=== PATIENT | male | born 1940 | race Caucasian/White ===

== ENCOUNTER 2017-06-05 06:55 | Day surgery (SDC) | payer MEDICARE, OTHER ==
[~2017-06-05] VITALS: Ht 177.8 cm; Wt 81.7 kg
[~2017-06-05 06:55] MED LIST: OXYBUTYNIN CHLOR5 MG PO; TERAZOSIN HCL5 MG PO; ZESTRIL40 MG PO
[2017-06-05] MEDS ORDERED: ALEVE220 MG PO (07:11)
[2017-06-05] MEDS ORDERED: ADULT LOW DOSE81 MG PO (07:13)
--- NOTE | 2017-06-05 10:36 | NUR ---
06/05/17 Clair6 Mary Negrete 1025: PT ARRIVED TO PACU WITH ORAL AIRWAY IN PLACE EXCHANGING AIRWAY, O2 SAT 100%. ADB SOFT AND ROUND. 1030: ORAL AIRWAY REMOVED BY IMAGE PROCESSING ENGINEER, O2 SAT 100% AND PT MAINTAINING OWN AIRWAY. PT RESTING AND REACTIVE TO STIMULI. 1035: PT OPEN HIS EYE AND NODED WHEN TOLD SURGERY WAS OVER.
[2017-06-05] MEDS ORDERED: MAPAP325 MG PO (10:41)
[2017-06-05] MEDS ORDERED: HYDROCODON-ACE1 EA10 PO (10:41)
--- NOTE | 2017-06-05 11:08 | NUR ---
ICED WATER GIVEN. CALL LIGHT W/IN REACH. SPOUSE @ BS. HARD COPY RX GIVEN TO SPOUSE. PT DENIES ADD'L NEEDS @ THIS TIME.
--- NOTE | 2017-06-05 12:20 | NUR ---
PT REPORTS FEELING "DIZZY" AND STATES HE IS "A LITTLE" NAUSEATED. SPOUSE REMAINS @ BS. PT HAS TAKEN SMALL SIPS OF WATER ONLY.
--- NOTE | 2017-06-05 12:48 | NUR ---
PT SWINGS LEGS TO SIDE OF BED AND MANEUVERS WELL. PT REPORTS INCREASED DIZZINESS AND NAUSEA WITH MOVEMENT. PT VOIDS APPROX 50 ML CLEAR YELLOW URINE AND IS BACK IN BED. SCDS IN PLACE.
--- NOTE | 2017-06-05 13:43 | NUR ---
PT WAKES EASILY WHEN RN ENTERS ROOM. PT REPORS FEELING "A LITTLE BETTER". PT TAKES SIPS OF WATER AND TOLERATES THAT WELL. SPOUSE REMAINS @ BS.
--- NOTE | 2017-06-05 14:51 | NUR ---
PT STANDS AND AMBULATES AROUND THE ROOM WELL. PT AMBULATES TO BR AND VOIDS 400 ML CLEAR YELLOW URINE IN URINAL AND AMBULATES BACK TO ROOM. PT REQ DC HOME W/SPOUSE. VERBAL DC INSTRUCTIONS GIVEN AND BOTH VERBALIZE UNDERSTANDING. PT GETTING DRESSED W/SPOUSE IN THE ROOM.
--- NOTE | 2017-06-09 10:36 | OR ---
[facility] [address], [place] [address] Signed DATE OF PROCEDURE: 06/05/17 PREOPERATIVE DIAGNOSIS: Right inguinal hernia. POSTOPERATIVE DIAGNOSES: Right indirect and direct inguinal hernia. PROCEDURE Repair of right inguinal hernia with implantation of Prolene mesh including ligation and excision of indirect sac. SURGEON: Brigida Rey MD. ANESTHESIA General endotracheal (Ivanna Ara, LEGISLATIVE AIDE, and local 20 mL of 0.25% Marcaine with epinephrine). INDICATION This 77-year-old white man is patient Dr. Fermin Peterson and has had progressive pain from a right inguinal hernia. It appears that the hernia is reducible. He has no associated constipation or chronic co ugh. He does have some urinary outlet obstructive symptoms which he takes terazosin. He is admitted at this time to undergo repair of the right inguinal hernia. He understand the risks of bleeding, infection, recurrence, and other unforeseen complications. He understand that, he wished to proceed. FINDINGS A moderate-sized indirect sac was noted. There was no sign of incarcerated viscus or sliding component. Additionally, the floor was markedly attenuated. High ligation and excision of the sac was accomplished as well as implantation of Prolene mesh in the properitoneal space in an underlay technique. There were no other findings of concern. A large ilioinguinal nerve branch was identified and preserved. PROCEDURE The patient was brought to the operating room, given a general endotracheal anesthetic. He received preoperative antibiotic Ancef. Sequential compression device stockings were used and heparin subcutaneously administered. The abdomen was clipped and prepared with Chlorhexidine solution and draped sterilely. A small incision was made cephalad to the pubic tubercle along the line of skin tension. Dissection was carried through the subcutaneous tissue with electrocautery. The external oblique was incised along its fibers revealing the underlying cord. The cord was dissected free and an ilioinguinal nerve branch identified and freed from the cremasteric muscle fibers of the cord and reflected around the external oblique and got out of harms way. Using blunt dissection, the cord was mobilized from the floor. It was encircled with a [place] drain. The floor Electronically Signed By: BRIGIDA REY MD 06/09/17 1036 PATIENT NAME: EDILSON LOPEZ OPERATIVE REPORT DATE OF : 36 PHYSICIAN: BRIGIDA REY MD REPORT #: [id number] REPORT IS CONFIDENTIAL AND NOT TO BE RELEASED WITHOUT AUTHORIZATION [facility] [address], [place] [address] Signed was markedly attenuated as well. An indirect hernia sac was dissected free from the spermatic cord. It was isolated completely from it, opened and found to have no sign of incarcerated viscus with sliding component. Using a 2-0 silk suture, the neck of the hernia sac was secured and this suture was applied doubly. The redundant hernia sac was amputated and passed for pathology. An Allis clamp was applied to the tendon of the transversus abdominis and using blunt dissection and electrocautery, the floor of the inguinal canal was divided, bluntly the properitoneal fat. A segment of Prolene mesh was cut to an elliptical configuration and secured in an underlay technique with interrupted 2-0 Prolene sutures. A defect was cut in the graft to accommodate the cord and the tails of the graft were secured laterally without encumbrance of the ilioinguinal nerve. The cord was replaced into the canal and hemostasis assured with electrocautery. A 20 mL of 0. 25% Marcaine with epinephrine was injected locally. The cord was placed into the canal with the ilioinguinal nerve, and the external oblique reapproximated with running 2-0 Vicryl suture. Maty's layer was reapproximated with interrupted 2-0 Vicryl, and the skin closed with running subcuticular 3-0 Vicryl. Steri-Strips were applied as well as Mepilex silver sponge dressing and an OpSite. The patient was ultimately extubated and transferred to the recovery room in good condition having suffered no complications. Sponge, needle, and instrument counts were reported as correct x3. MD TAMMIE Nicholas/Modl /[id number] cc: Reid Peterson MD Electronically Signed By: BRIGIDA REY MD 06/09/17 1036 PATIENT NAME: EDILSON LOPEZ OPERATIVE REPORT DATE OF : 36 PHYSICIAN: BRIGIDA REY MD REPORT #: [id number] REPORT IS CONFIDENTIAL AND NOT TO BE RELEASED WITHOUT AUTHORIZATION
== END 2017-06-05 15:10 | disposition home or self-care (01) ==
LOC: DS 06:55
PROVIDERS: Surgery
PROC: 0YU50JZ Supplement Right Inguinal Region with Synthetic Substitute, Open Approach (ICD-10-PCS; principal; 2017-06-05 08:15)
DX: K40.90 Unilateral inguinal hernia, without obstruction or gangrene, not specified as recurrent (principal); D17.6 Benign lipomatous neoplasm of spermatic cord; I10 Essential (primary) hypertension; K21.9 Gastro-esophageal reflux disease without esophagitis; Z86.73 Personal history of transient ischemic attack (TIA), and cerebral infarction without residual deficits; Z95.0 Presence of cardiac pacemaker; Z98.49 Cataract extraction status, unspecified eye; Z98.890 Other specified postprocedural states
CPT/HCPCS: 00830; 88300; C1781; J0330; J0690; J1100; J1644; J1885; J2405; J2550; J2704; J7120

== ENCOUNTER 2017-07-07 05:38 | Emergency (ER) | payer MEDICARE, OTHER ==
[~2017-07-07] VITALS: Ht 177.8 cm; Wt 81.7 kg
--- NOTE | ~2017-07-07 | EKG ---
[facility] [address] [facility] [place], [place] [address] Draft EKG completed, results pending confirmation PATIENT NAME: EDILSON LOPEZ NEGRITO Electrocardiogram DATE OF : 36 PHYSICIAN: PRELIMINARY REPORT #: [id number] REPORT IS CONFIDENTIAL AND NOT TO BE RELEASED WITHOUT AUTHORIZATION
[~2017-07-07 05:38] MED LIST changes: +ADULT LOW DOSE81 MG PO; +ALEVE220 MG PO; +HYDROCODON-ACE1 EA10 PO; +MAPAP325 MG PO
[2017-07-07] MEDS ORDERED: TRAMADOL HCL50 MG PO (06:55)
--- NOTE | 2017-07-07 14:25 | EKG ---
[facility] [address] [facility] [place] [address] Signed Atrial-paced rhythm with prolonged AV conduction Abnormal ECG When compared with ECG of 07-JUL-2017 06:25, (Unconfirmed) No significant change was found Confirmed by ALEXANDRE JUAREZ MD ([id number]) on 07/07/2017 2:25:17 PM Electronically Signed By: ALEXANDRE JUAREZ MD 07/07/17 1425 PATIENT NAME: EDILSON LOPEZ Electrocardiogram DATE OF : 36 PHYSICIAN: ALEXANDRE JUAREZ MD REPORT #: [id number] REPORT IS CONFIDENTIAL AND NOT TO BE RELEASED WITHOUT AUTHORIZATION
== END 2017-07-07 07:06 | disposition home or self-care (01) ==
LOC: ED 05:38
DX: M25.512 Pain in left shoulder (principal); I10 Essential (primary) hypertension; Z87.891 Personal history of nicotine dependence; Z79.82 Long term (current) use of aspirin; Z79.899 Other long term (current) drug therapy
CPT/HCPCS: 71020; 84484; 93005; 93010; 99283

== ENCOUNTER 2018-10-17 11:32 | Emergency (ER) | payer MEDICARE, OTHER ==
[~2018-10-17] VITALS: Ht 177.8 cm; Wt 81.7 kg
[~2018-10-17 11:32] MED LIST changes: +OXYCODON-ACETA1 EAC2 PO; +TRAMADOL HCL50 MG PO
--- NOTE | 2018-10-18 11:29 | EKG ---
[facility] [address] [facility] [place] [address] Signed Atrial-paced rhythm Abnormal ECG When compared with ECG of 19-AUG-2018 11:08, T wave inversion no longer evident in Lateral leads Confirmed by ABDON REYES DO ([id number]) on 10/18/2018 11:29:35 AM Electronically Signed By: ABDON REYES DO 10/18/18 1129 PATIENT NAME: EDILSON LOPEZ NEGRITO Electrocardiogram DATE OF : 36 PHYSICIAN: ABDON REEYS DO REPORT #: [id number] REPORT IS CONFIDENTIAL AND NOT TO BE RELEASED WITHOUT AUTHORIZATION
== END 2018-10-17 14:37 | disposition home or self-care (01) ==
LOC: ED 11:32
DX: R55 Syncope and collapse (principal); R53.1 Weakness; I10 Essential (primary) hypertension; Z79.899 Other long term (current) drug therapy; Z79.82 Long term (current) use of aspirin
CPT/HCPCS: 71045; 80053; 81001; 84484; 85025; 93005; 93010; 96360; 99285-25; J7040

== ENCOUNTER 2021-07-13 11:48 | Inpatient (IN) | payer MEDICARE, OTHER ==
[~2021-07-13] VITALS: Ht 177.8 cm; Wt 79.8 kg
--- NOTE | 2021-07-13 19:45 | NUR ---
pt ARRIVES TO FLOOR VIA STRETCHER. VOMITTING, PAINFUL WITH SITTING HOB UP FOR ASPIRATION PRECAUTION. PHONE CALL TO MD. ROSA TO PLACE ORDER.
--- NOTE | 2021-07-13 20:18 | NUR ---
ASSESSMENT COMPLETE. pt RATES PAIN 5/10 IN LOWER BACK, NO REDNESS NOTED. LIDOCAINE PATCH APPLIED ORDERED. PRN PAIN MEDICATION ADMINISTERED AFTER PRN NAUSEA MEDICATION. pt ABLE TO SWALLOW WITH JELLO. DENIES NAUSEA AFTER PRN PHENERGAN ADMINISTRATION. SON IN ROOM. ABD SOFT, NON-TENDER WITH PALPATION, BOWEL TONES ACTIVE. pt STATES HE HAS NOT HAD BM SINCE LAST WEEK, NORMAL FOR HIM, STOOLS WNL. ORIENTATION TO ROOM PROVIDED. CALL LIGHT WITHIN REACH.
--- NOTE | 2021-07-13 21:55 | NUR ---
AFTER SCHEDULED MEDICATION GIVEN IV, PT STARTED TO GET OUT OF BED. WANTED A DRINK OF WATER. GIVEN, BUT THEN HE CONTINUED TO WANT TO GET UP. NO COMPLAINT, OR SIGN OF PAIN. ASSISTED PT TO STAND, WAS ABLE TO STEP TO HEAD OF BED, SAT BACK DOWN, THEN WANTED UP AGAIN. THIS TIME HE WANTED TO PEE, STOOD AT BEDSIDE TO USE URINAL, AGAIN, NO COMPLAINTS OR SIGN OF PAIN. ABLE TO GET HIS LEGS BACK INTO BED WITHOUT ASSISTANCE. ASKED PT ABOUT HIS PAIN HE SAID IT WASN'T TOO BAD, SELF REPOSITIONED, WITHOUT COMPLAINTS OF PAIN. BED ALARM PLACED, EDUCATED PT TO CALL LIGHT AGAIN.
--- NOTE | 2021-07-13 22:49 | NUR ---
pt RESTING IN BED WITH EYES CLOSED, BREATHING EQUAL AND UNLABORED, RR 16. LIGHTS OFF IN ROOM. BED ALARM ON.
--- NOTE | 2021-07-14 01:00 | NUR ---
CHECKED ON Pt. RESTING IN BED WITH EYES CLOSED. BREATHING EQUAL AND UNLABORED. LIGHTS OFF IN ROOM. BED ALARM ON.
--- NOTE | 2021-07-14 02:05 | NUR ---
pt RESTING ON RIGHT SIDE. VSS. pt CONFUSED, STATES "I'M AT A CARE FACILITY". REORIENTATION TO LOCATION, DATE, EVENT PROVIDED. pt REORIENTS EASILY. DENIES TOILETING NEEDS. PROVIDED WITH JELLO. DENIES NAUSEA. ASSESSMENT COMPLETE. pt RATES PAIN 4/10 IN LOWER BACK "IT'S NOT BAD". DENIES NEED FOR PRN MEDICATION. CALL LIGHT IN REACH. BED ALARM ON.
--- NOTE | 2021-07-14 04:25 | NUR ---
pt RESTING IN BED. EYES CLOSED, BREATHING UNLABORED. LYING ON RIGHT SIDE. LIGHTS OFF IN ROOM. BED ALARM ON.
--- NOTE | 2021-07-14 06:49 | NUR ---
pt AWAKENS TO VOICE, RATES PAIN 6/10 IN LOWER BACK. PRN MUSCLE RELAXER AND PAIN MEDICATION ADMINISTERED. pt SITTING UP IN BED EATING PUDDING, DRINKING WATER. DENIES NAUSEA. VSS. URINAL EMPTIED. ASSISTED TO USE PHONE TO CALL TO BRING GLASSES IN. pt ASSISTED TO ORDER BREAKFAST. CALL LIGHT IN REACH, pt FORGETFUL WITH HOW TO USE CALL LIGHT REORIENATION PROVIDED. BED ALARM ON.
[2021-07-14] MEDS ORDERED: TRAMADOL HCL50 MG PO (07:27)
--- NOTE | 2021-07-14 07:49 | NUR ---
report recieved from night order selector RN, patient in bed resting reports pain is much better this morning, denies any needs. call [facility] within reach.
--- NOTE | 2021-07-14 10:40 | NUR ---
PRN MEDICATIONS GIVEN FOR BACK PAIN, AND SON IN ROOM, PATIENT DENIES ANY OTHER NEEDS AT THE MOMENT, CALL LIGHTWITHIN REACH AND BEDALARM ON.
--- NOTE | 2021-07-14 10:45 | NUR ---
Spoke with pt and his . They live in a 2 story home with a ramp. Pt uses a cane and sometimes a walker. Has a history of back pain, but never this bad in the past. Has seen Dr. Hester in [place] for injections to his back. They are aware of [employer] and never use the food bank. State they are financially ok. Son is in the room. All deny awaiting to hear test results. Plan is to go home with .
--- NOTE | 2021-07-14 11:39 | NUR ---
MED REC COMPLETE
--- NOTE | 2021-07-14 14:21 | NUR ---
PT ALERT, OREINTED AND SITTING IN BED WATCHING TV. PT HAS CHRONIC SEVERE BACK PAIN AND IS WAITING FOR TEST RESULTS. PLANS TO GO TO [facility] FOR BACK SURGERY PENDING THE TEST RESULTS. PT REQUESTED PRAYER, WILL FOLLOW
--- NOTE | 2021-07-14 14:40 | NUR ---
PRN MEDICATIONS GIVEN FOR BACK PAIN, DENIES ANY OTHER NEEDS. BEDALARM PHYSICIAN LIGHT WITHIN REACH,
--- NOTE | 2021-07-14 18:35 | NUR ---
PATIENT RESTING IN ROOM UOP BETTER THIS AFTERNOON AFTER 1000ML BOLUS OF LR, PRN MEDICATIONS GIVEN PER ORDERS, CONTINUE WITH PAIN MANAGEMENT, PATIENT WORKED WITH PT, REPORTS NO BOWEL MOVEMENTS IN A COUPLE DAYS ORDERS IN.
--- NOTE | 2021-07-14 19:20 | NUR ---
SHIFT REPORT RECEIVED FROM ALEXANDRIA WOOD. PT PLACED ON BED MOSELEY PER REQUEST AND CALL LIGHT PROVIDED.
--- NOTE | 2021-07-14 21:30 | NUR ---
IN TO GET VITALS, URINAL EMPTIED, PT DENIES NEED FOR WATER REFRESHED, NO FURTHER NEEDS
--- NOTE | 2021-07-14 22:00 | NUR ---
ASSESSMENT COMPLETED. PT BACK PAIN 04/26. PRN PAIN MED PROVIDED. SCHEDULED MEDS PROVIDED. GCS 15, A&O X4. LUNGS CLEAR, HEART TONES REGULAR. CMS INTACT. ABD SOFT, NONTENDER, BOWEL TONES ACTIVE. IV WNL, CDI, FLUSHED WELL. ICE WATER PROVIDED. NO OTHER NEEDS AT THIS TIME. CALL LIGHT IN REACH.
--- NOTE | 2021-07-15 | NUR ---
PT RESTING IN BED, RR EVEN, UNLABORED. CALL LIGHT IN REACH.
--- NOTE | 2021-07-15 02:10 | NUR ---
IN TO EMPTY URINAL FOR PT, NO FURTHER NEEDS AT THIS TIME
--- NOTE | 2021-07-15 04:56 | NUR ---
PT REPORTS 9/10 BACK PAIN. PRN MED PROVIDED. ASSESSMENT, VS AND I&O COMPLETED. IV WNL. NO OTHER NEEDS AT THIS TIME. CALL LIGHT IN REACH.
--- NOTE | 2021-07-15 07:35 | NUR ---
REPORT RECIEVED FROM MICA SPREADER RN, IN BED RESTING, CALL LIGHT WITHIN REACH DENIES ANY OTHER NEEDS AT THE MOMENT
--- NOTE | 2021-07-15 11:30 | NUR ---
Spoke with pt and . Pt is uncomfortable and is crying. States its so hard to watch him in pain. Rn is getting pain med for pt.
--- NOTE | 2021-07-15 11:38 | NUR ---
PT LAYING IN BED, AT BS. PT IS IN GREAT PAIN TODAY, WAITING FOR POSSIBLE X-RAY TO [place]OVE MORE INFO FOR BACK DR IN [place]. PT TO REMAIN QUIET TODAY-NO ACTIVITY TODAY. HAD PRAYER WITH BOTH, GAVE PT BRUNA AND VIJI. WILL FOLLOW
--- NOTE | 2021-07-15 11:42 | NUR ---
BED BATH DONE WELL COMPLETE BED CHANGE, PATIENT WITH SEVERE PAIN, PRN DILAUDID GIVEN FOR PAIN POST BATH, RESTING COMFORTABLE, AT BEDSIDE NO OTHER NEEDS AT THE MOMENT.
--- NOTE | 2021-07-15 17:34 | NUR ---
prn pain meds and muscle relaxer given to patient .
--- NOTE | 2021-07-15 18:50 | NUR ---
PATIENT RESTING IN BED, NO NEEDS AT THE MOMENT.
--- NOTE | 2021-07-15 19:29 | NUR ---
SHIFT REPORT RECEIVED FROM NINA IBRAHIM. PATIENT RESTING QUIETLY IN LOW FOWLERS POSITION, RESPIRATIONS ARE REGULAR AND EVEN, EYES CLOSED, CALL LIGHT IS IN REACH.
--- NOTE | 2021-07-15 21:30 | NUR ---
PATIENT STILL RESTING QUIETLY IN LOW FOWLERS POSITION. EYES ARE CLOSED AND RESPIRATIONS ARE REGULAR AND EVEN. CALL LIGHT IS IN REACH.
--- NOTE | 2021-07-15 22:02 | NUR ---
IN TO GET VITALS, EMPTIED URINAL, NO FURTHER NEEDS AT THIS TIME, PT DENIES NEED FOR WATER REFILLED AT THIS TIME
--- NOTE | 2021-07-15 22:21 | NUR ---
PATIENT HAVING 8/10 LOW BACK PAIN AND OXYCODONE AND TYLENOL GIVEN, BUT PATIENT IS HURTING A LOT AND 0.5MG IV DILAUDID ALSO GIVEN. PATIENT TOOK ALL OTHER EVENING MEDS WITHOUT DIFFICULTY. PATIENT HAS BEEN VOIDING PER URINAL. HELPED PATIENT REPOSITON WITH PILLOWS TO HIS LEFT SIDE. PATIENT HAS NO OTHER CARE NEEDS AT THIS ITME. CALL LIGHT IS IN REACH.
--- NOTE | 2021-07-15 23:22 | NUR ---
PATIENT RESTING QUIETLY WHEN I WENT IN TO EMPTY URINAL AND WOKE UP AND SAID HIS PAIN IS DOWN TO A 4/10. PATIENT HAD NO OTHER CARE NEEDS AT THIS TIME. CALL LIGHT IS IN REACH.
--- NOTE | 2021-07-16 02:24 | NUR ---
CHECKING IN ON PATIENT AND HE HAS BEEN ABLE TO GET A LITTLE SLEEP. PATIENT'S BACK PAIN IS CURRENTLY 5/10 AND OXYCODONE AND A MUSCLE RELAXANT GIVEN FOR PAIN. PATIENT'S URINAL EMPTIED AND PATIENT DENIED ANY OTHER NEEDS. LIGHTS TURNED DOWN AND CALL LIGHT IS IN REACH.
--- NOTE | 2021-07-16 04:26 | NUR ---
PATIENT RESTING QUIETLY ON HIS LEFT SIDE, RESPIRATIONS ARE REGULAR AND EVEN, EYES ARE CLOSED, CALL LIGHT IN REACH, PATIENT HAS NO CARE NEEDS AT THIS TIME.
--- NOTE | 2021-07-16 06:31 | NUR ---
AT 0548 PATIENT HAD C/O 7/10 LOW BACK PAIN AND WANTED PAIN MEDICATION WHICH WAS GIVEN. 0.5MG IV DILAUDID FOR QUICK RELIEF AND 10MG PO OXYCODONE FOR LONGER PAIN CONTROL. PATIENT APPEARED TO HAVE GOTTEN DOWN BOTH TABLETS, BUT AFTER DOING VS THIS RN FOUND A WET TABLET OF ABOUT THE SAME SIZE ON THE FLOOR WHICH WAS THROWN AWAY. PATIENT REPOSITOINED IN BED AND PULLED UP AND NEW ATTENDS IN PLACE. PATIENT HAD A LITTLE DRIBBLING INCONTINENCE ON THE PREVIOUS ATTENDS AND THERE WAS A SMALL AMOUNT OF BLOOD ON THE ATTENDS AND ON THE TIP OF THE PENIS AT THE URETHRA. PATIENT IS UNSURE IF HE HURT HIMSELF USING THE URINAL OR NOT. THIS WAS WASHED UP WITH A CLEAN WASHCLOTH. PATIENT'S B/P IS A LITTLE SOFT AND URINE OUTPUT HAS NO BEEN GREAT. WILL BE CALLING .
--- NOTE | 2021-07-16 06:41 | NUR ---
CALLED ABOUT PATGIENT'S LOW BLOOD PRESSURE AND NEW ORDER GIVEN FOR LR AT 75ML/HR. ALSO INFORMED MD OF LOWER URINE OUTPUT AND VERBALIZED UNDERSTANDING. ORDER PUT IN AND LR STARTED. PATIENT'S CALL LIGHT IS IN REACH.
--- NOTE | 2021-07-16 07:10 | NUR ---
Bedside report recieved from access tech RN, patient currently sleeping, call light within reach no needs at the time.
--- NOTE | 2021-07-16 07:21 | NUR ---
HERE ON THE UNIT. DISCUSSED PATIENT HAVING SCD'S SINCE PATIENT IS NOT MOVING MUCH. SCD ORDER GIVEN. NINA IBRAHIM INFORMED.
--- NOTE | 2021-07-16 07:30 | NUR ---
PT AWAKE IN BED. PT REFUSED TO SIT UP IN BED FOR BREAKFAST, BUT WAS NOT READY TO EAT YET. GAVE PT WARM CLOTH FOR FACE AND WHITE BOARD UPDATED. CALL LIGHT WITHIN REACH. WINDOW BLINDS OPENED. NO FURTHER NEEDS AT THIS TIME.
--- NOTE | 2021-07-16 08:45 | NUR ---
RN IN ROOM TO ASSSES PATIENT, PATIENT HAS BEEN HAVING SOFT BP OVER NIGHT CURRENTLY 100/49 MAP 60 HR 60, HOLDING LISINOPRIL AND HYTRIN , PATIENT STILL COMPLAINING OF 8/10 BACK PAIN, UNABLE TO TOLERATE MUCH MOVEMENT. DR MANN NOTIFIED CONTINUE TO MONITOR. SCHEDULED TYLENOL GIVEN FOR PAIN.
--- NOTE | 2021-07-16 09:35 | NUR ---
PT AWAKE IN BED WITH FAMILY IN THE ROOM. CALL LIGHT WITHIN REACH. PT'S FAMILY CONCERNED BY LACK OF BM BY THE PT. RN ALEXANDRIA NOTIFIED. FRESH ICE WATER GIVEN. NO FURTHER NEEDS AT THIS TIME.
--- NOTE | 2021-07-16 10:24 | NUR ---
RN TO CHECK ON PATIENT BP 88/45 DR FLORES NOTIFIED, WILL ASSESS PATIENT.
--- NOTE | 2021-07-16 10:30 | NUR ---
MD AWARE OF PATIENT STATUS.
--- NOTE | 2021-07-16 11:08 | NUR ---
In room to round on patient currently resting bp better, patient more awake, at bedside, Dr Claros placed orders for CT scans.
--- NOTE | 2021-07-16 12:47 | NUR ---
patient went down to CT with RN and CABLE SYSTEMS INSTALLER, able to tolerate transfers, back in room with at bedside denies any other needs at the time.
--- NOTE | 2021-07-16 15:15 | NUR ---
RN in to round on patient, patient resting in bed, at bedside, no needs at this time
--- NOTE | 2021-07-16 15:34 | NUR ---
BED BATH COMPLETED ON PT WITH HELP OF NINA IBRAHIM. FRESH LINENS, GOWN, WARM BLANKETS, FRESH BRIEF GIVEN. PT TURNED ONTO LEFT SIDE AND SUPPORTED BY A PILLOW. CALL LIGHT WITHIN REACH. NO FURTHER NEEDS AT THIS TIME.
--- NOTE | 2021-07-16 18:00 | NUR ---
RN IN ROOM TO ROUND DENIES ANY NEEDS AT THE MOMENT.
--- NOTE | 2021-07-16 19:30 | NUR ---
SHIFT REPORT RECIEVED FROM NINA IBRAHIM. PATIENT RESTING QUIETLY IN BED AT THIS TIME WITH LIGHTS DOWN LOW, EYES ARE CLOSED, RESPIRATIONS ARE REGULAR AND EVEN, AND CALL LIGHT IS IN REACH. NO CURRENT CARE NEEDS NOTED AT THIS TIME.
--- NOTE | 2021-07-16 21:17 | NUR ---
PATIENT IS ABLE TO PULL HIMSELF UP IN BED TONIGHT WHICH IS A BIG IMPROVEMENT SINCE LAST NIGHT. PATIENT HAVING 6/10 LOW BACK PAIN. TYLENOL, A MUSCLE RELAXANT, AND LIDOCAINE PATCH ALL GIVEN AND OR APPLIED FOR THIS PAIN. PATIENT'S ICE WATER IS REFILLED, PM ASSESSMENT COMPLETE, VS STABLE, AND I+O ENTERED BY THIS RN. PATIENT HAS NO OTHER CARE NEEDS AT THIS TIME AND CALL LIGHT IS IN REACH.
--- NOTE | 2021-07-16 23:00 | NUR ---
ASSISTED PT ON TO THE BEDPAN, PT TRYING FOR A BM, UNABLE AT THIS TIME, CHANGED PT DUE TO UNINE SPILL, NEW CHUX, ATTENDS IN PLACE, NO FURTHER NEEDS AT THIS TIME
--- NOTE | 2021-07-17 01:10 | NUR ---
PATIENT'S URINAL EMPTIED, PATIENT RESTING QUIETLY, EYES CLOSED, RESPIRATIONS REGULAR AND EVEN, IN LOW FOWLERS POSITION, CALL LIGHT IN REACH, NO OTHER CARE NEEDS NOTED AT THIS TIME.
--- NOTE | 2021-07-17 02:00 | NUR ---
IN TO ASSIST RN WITH CLEANED UP PT, FLOOR, AND BED RAILS, LINENS CHANGED, PRIMARY RN NOTIFIED AND IN TO START NEW IV, NO FURTHER NEEDS AT THIS TIME
--- NOTE | 2021-07-17 02:12 | NUR ---
PT'S IV WAS BEEPING, ENTERED ROOM TO FIND PT SITTING AT EDGE OF BED. HE HAD SOME HOW PULLED HIS IV OUT AND WHEN HE REALIZED HE STOPPED WITH BLEEDING WITH TISSUES. BLOOD DRIPPED ON FLOOR AND WAS ON PT'S GOWN AND BEDDING. CLEANED PT UP AND CHANGED BEDDING WITH HELP FROM SAMI MERAZ. ATTEMPTED TO HAVE PT STAND FIRST BUT HE WAS TOO PAINFUL SO WE CHANGED HIS BEDDING WITH HIM ROLLING SIDE TO SIDE. TONY WOOD IS NOW IN THE ROOM TO START A NEW IV. CALL LIGHT IS CLOSE.
--- NOTE | 2021-07-17 02:36 | NUR ---
PATIENT HAD ACCIDENTALLY PULLED OUT HI IV WHEN SITTING UP ON THE SIDE OF THE BED. NINA SINGER AND SAMI MERAZ GOT PATIENT CLEANED UP AND CHANGED. OLD IV CATHETER WAS INTACT. THIS RN STARTED A NEW 20G/IV IN PATIENT'S LEFT HAND PATIENT REQUESTED. GREAT BLOOD RETURN AND FLUSHES WELL. CONTINUOUS FLUIDS RUNNING AGAIN. PATIENT GIVEN 5MG PO OXYCODONE FOR 6/10 LOW BACK PAIN. LIGHTS TURNED DOWN AT PATIENT'S REQUEST. CALL LIGHT IS IN REACH. PATIENT HAS NO OTHER CARE NEEDS AT THIS TIME.
--- NOTE | 2021-07-17 05:05 | NUR ---
PATIENT SAYS HE HAS SLEPT WELL MOST OF THE NIGHT. PATIENT VOIDING QS URINE PER URINAL AT BEDSIDE. PATIENT HAS ONLY HAD 5MG OF OXYCODONE X1 TONIGHT FOR PAIN PATIENT FEELS HIS PAIN HAS BEEN MUCH MORE CONTROLLED TONIGHT. PATIENT HAS SET ON THE EDGE OF THE BED A COUPLE TIMES TONIGHT BY HIMSELF. PATIENT STILL CAN NOT STAND DUE TO INCREASED PAIN, BUT PATIENT ABLE TO SCOOT HIMSELF UP IN BED. PATIENT HAS REQUESTED TO HAVE HIS SCD'S OFF MOST OF THE NIGHT HE SAYS THEY MAKE HIM TO HOT AND HE IS NOT ABLE TO SLEEP WITH THEM ON. PATIENT STILL HAS NOT HAD A BM SINCE THE EVEN WITH ALL THE BOWEL MEDS HE HAS BEEN GIVEN. PATIENT MAY NEED TO HAVE AN ENEMA. WILL REPORT THIS TO AM SHIFT. BLOOD PRESSURE IS A LITTLE HIGH THIS MORNING OPPOSED TO THE LOW BLOO PRESSURE HE HAD YESTERDAY MORNING. B/P WAS WITHIN PARAMETERS AND PATIENT WAS STARTELED WHEN AWAKENED FOR VS. CALL LIGHT IS IN REACH AND PATIENT HAS NO CURENT CARE NEEDS.
--- NOTE | 2021-07-17 08:45 | NUR ---
THIS RN IN PTS ROOM TO GIVE PT MORNING MEDS. PT STATES THAT HIS PAIN IS OKAY WHEN HE DOESN'T MOVE. PT EATING BREAKFAST AND APPEARS TO BE FRUSTRATED WITH HIS BREAKFAST ORDER GETTING MESSED UP. PT TO WORK WITH PHYSICAL THERAPY
--- NOTE | 2021-07-17 10:30 | NUR ---
THIS RN IN PTS ROOM DUE TO PTS REQUEST. PT REPORTS PAIN. THIS RN IN TO GIVE PT 10MG OF OXY AND FLEXERIL. THIS RN HAD ASSISTANCE FROM ELSY GALLARDO TO GET PT BACK TO BED. IT TOOK 3 TRIES TO GET PT TO STAND UP FROM CHAIR DUE TO BACK SPASM PER PT "FROM PINCHED NERVE"
--- NOTE | 2021-07-17 15:30 | NUR ---
PT CALLING TO BE PUT ON BED MOSE[place]. THIS RN ASSISTED PT TO BEDPAN.
--- NOTE | 2021-07-17 16:00 | NUR ---
THIS RN IN PTS ROOM TO CHECK ON PT. PT REPORTS THAT HE WAS ABLE TO PASS SOME GAS. PT DID HAVE AN INCONTINCE URINE WHILE USING BEDPAN DUE TO PRESSURE OF PUSHING. ELSY GALLARDO ABLE TO ASSIST THIS RN TO REPOSITION PT
--- NOTE | 2021-07-17 19:41 | NUR ---
SHIFT REPORT RECEIVED FROM NINA HARDY. PATIENT RESTING QUIETLY IN BED AND HAS NO CURRENT CARE NEEDS. RESPIRATIONS ARE REGULAR AND EVEN AND PATIENT IN NO DISTRESS. CALL LIGHT IS IN REACH AND URINAL HAS BEEN EMPTIED.
--- NOTE | 2021-07-17 20:18 | NUR ---
CALL LIGHT ANSWERED. pt ASSISTED TO BED MOSELEY 1PA. PASSING GAS. CALL LIGHT WITHIN REACH. VERBALIZES UNDERSTANDING TO USE CALL LIGHT WHEN FINISHED.
--- NOTE | 2021-07-17 21:10 | NUR ---
KARON, RN ASSISTED THIS RN IN BED CHANGE AFTER PATIENT'S BOWELS FINALLY MOVED AFTER NO BM SINCE 07/08/21. XXLARGE BROWN/PASTY BM THAT OVERFLOWED PEDPAN WAS CLEANED UP. PATIENT IN NEW ATTENDS AND FRESS LINEN. PATIENT SAYS HE FEELS MUCH BETTER. BACK PAIN NOW 12/25 NOW, NEW LIDOCAINE PATCH IN PLACE, TYLENOL GIVEN, WELL MELATONIN FOR SLEEP. CALL LIGHT AND URINAL IN REACH. PATIENT HAS NO OTHER NEEDS AT THIS TIME.
--- NOTE | 2021-07-17 23:40 | NUR ---
PATIENT CALLED AND NEEDS CHUX AND AND ATTENDS CHANGED. THIS RN AND SAMI GIVENS CHANGED AND CLEANED UP PATIENT FROM ANOTHER XLARGE SOFT/SEMILIQUID BM. PATIENT HAD NO OTHER NEEDS AFTER THIS AND HIS CALL LIGHT IS IN REACH. PATIENT DID EAT TO SMALL JELLOS.
--- NOTE | 2021-07-18 00:54 | NUR ---
PATIENT'S LOW BACK PAIN HAS IMPROVED TO HER NORMAL TOLERANCE LEVEL AND DOES NOT WANT ANY MORE PAIN MEDS AT THIS TIEM. LR BOLUS COMPLETE AND LR AT 85MLS/HR RUNNING. PATIENT DENIES ANY NEEDS A THIS TIME AND IS NPO. CALL LIGHT IN REACH AND TOILET HAT EMPTIED.
--- NOTE | 2021-07-18 01:45 | NUR ---
PATIENT RESTING QUIETLY IN LOW FOWLERS POSITION, RESPIRATIONS REGULAR AND EVEN, EYES CLOSED, AND CALL LIGHT IS IN REACH. PATIENT HAS NO NOTED PATIENT CARE NEEDS AT THIS TIME.
--- NOTE | 2021-07-18 03:05 | NUR ---
PATIENT CALLED AND TO INFORM STAFF HE HAD ANOTHER BM. PATIENT ONLY HAD A SMEAR OF PASTY BROWN STOOL THIS TIME AND ATTENDS WAS CHANGED, BARRIER CREAM APPLIED, AND CALL LIGHT IS IN REACH. PATIENT HAD NO OTHER CARE NEEDS AT THIS TIME.
--- NOTE | 2021-07-18 05:25 | NUR ---
PATIENT'S ATTENDS REMAIN DRY, NO MORE STOOL AT THIS TIME. URINAL EMPTIED. MUSCLE RELAXANT GIVEN FOR 5/10 LOW BACK PAIN. PATIENT HAS NO THER CARE NEEDS AT THIS TIME. CALL LIGHT IS IN REACH.
--- NOTE | 2021-07-18 07:26 | NUR ---
PT AWAKE AT SHIFT EXCHANGE. C/O BACK PAIN RETURNING MEDICATED WITH OXY 5MG. FRESH GOWN AND WARM BLANKET PROVIDED PER REQUEST. CALL LIGHT IN REACH, PT DENIES OTHER NEEDS OF.
--- NOTE | 2021-07-18 08:13 | NUR ---
PT LAYING IN BED EATING BREAKFAST. PT ON THEIR BACK AND REFUSES TO GET UP TO CHAIR OR RAISE HEAD OF BED. NINA COHEN NOTIFIED. CALL LIGHT WITHIN REACH. WHITE BOARD UPDATED. THIS SEROLOGIST WILL CHECK ON PT PERIODICALLY WHILE EATING BREAKFAST. NO FURTHER NEEDS AT THIS TIME.
--- NOTE | 2021-07-18 09:15 | NUR ---
PT RESTING IN BED STATES HIS BACK HURTS BAD IT EVER HAS. TYLENOL AND DEXAMETHASONE ADMINISTERED, OXY EARLIER. PAIN REGIMEN DISCUSSED AT LENTH EACH MED AND ITS EFFECT, PT VERBALIZES UNDERSTANDING. TIME OF NEXT PRN RECORDED ON BOARD FOR PT VISUAL. PT NOTIFIED OF NOON TIME BONE SCAN, MEDS TO BE GIVEN AT 1130. BREAKFAST WELL TOLERATED, PT DENIES NEED OF OTHER ITEMS. CALL LIGHT AND FRESH H20 IN REACH
--- NOTE | 2021-07-18 09:50 | NUR ---
I was able to visit briefly with Paul this morning while doing my patient rounding. Paul states that he does not feel well today, he does feel that the nurses are taking good care of him, but he does not feel well, and would rather not visit extensively at this time. I wished him well, offered comfort measures which were denied, as he stated that he "just wanted to rest." Before leaving the room I did verify that he knew how to use his call light, and to be sure to call the nurses if he did need something. He verbalized understanding of using his call light, and stated he would call if he needed anything.
--- NOTE | 2021-07-18 11:27 | NUR ---
PT RESTING IN BED PRESENT IN THE ROOM. PT HAS BEEN RESISTANT TO THERAPY TODAY, REPORTING INCREASED PAIN. HE DID COOPERATE ULTIMATELY. PAIN MEDS AND RELAXERS ARE BEING ADMINISTERED OFTEN ORDERS INDICATE POSSIBLE. PT TO HAVE SCAN AT NOON EDUCATION PROVIDED.
--- NOTE | 2021-07-18 12:30 | NUR ---
Spoke with pt and his . Per pt. he had several large bms last night. He complains his back remains extremely painful. Per staff, pt refusing to move. Pt states he is going for bone scan today. He is concerned as he states he cannot be lifted or turned. I suggested he ask the rn to premedicate him prior to scan. stating he just cannot tolerate the pain. Spoke with Dr. Claros and she is awaiting the scan and states pt may need placement if he is unable to move.
--- NOTE | 2021-07-18 13:56 | NUR ---
PT LAYING FLAT IN BED, LIGHTS OUT AND TV OFF. PT IS ALERT, ORIENTED AND STATED HE WAS DOING BETTER THIS AFTERNOON. AM WAS BAD FOR PAIN. HOPES TO DC TOMORROW, GAVE BLESSING AND WILL CONTINUE TO FOLLOW
--- NOTE | 2021-07-18 14:36 | NUR ---
PATIENT IN BED RESTING AT THIS TIME. WHEN THIS TUNGSTEN TENDER ASKED PATIENT HOW HE WAS FEELING DI STATED "I'M GOOD I HAVE BEEN UP WALKING AROUND THE ROOM BY MYSLEF BECAUSE I WOULD RATHER DO IT BY MYSELF THAN WITH PT, THEY ARE TO PUSHY." ASKED PATIENT TO PLEASE CALL US WHEN HE WANTED TO GET UP SO WE COULD BE IN ROOM WITH HIM, DI SAID OKAY. BED ALARM IS ON. CALL LIGHT IN REACH. VITALS AND I&O'S CHARTED. NO FURTHER NEEDS AT THIS TIME.
--- NOTE | 2021-07-18 15:43 | NUR ---
PT AGREES PAIN IS WELL CONTROLLED THIS SHIFT. HE HAS SAT UP ON THE EDGE OF THE BED SEVERAL TIMES AND STOOD WELL. AND SON PRESENT IN THE ROOM AT THIS TIME
--- NOTE | 2021-07-18 18:24 | NUR ---
PT BACK FROM SCAN, PROCEEDURE WELL TOLERATED. RESTING IN BED NOW
--- NOTE | 2021-07-18 19:22 | NUR ---
PATIENT REPORT RECEIVED FROM NINA COHEN. PATIENT DENIES ANY PAIN AT THIS TIME AND SAYS HE HAS NO CURRENT CARE NEEDS. PATIENT'S ICE WATER REFILLED. PATIENT'S CALL LIGHT IS IN REACH AND BED ALARM IS ON.
--- NOTE | 2021-07-18 20:05 | NUR ---
PATIENT CALLED AND THOUGHT HE WAS INCONTINENT STOOL IN THE BED, TURNS OUT IT WAS ONLY GAS. VS STABLE, NEW ATTENDS ON, ICE WATER REFILLED, CALL LIGHT IN REACH, AND BED ALARM ON. PATIENT HAD TYLENOL AND MUSCLE RELAXER FOR HIS BACK WHICH HE SAYS IS DOING,"JUST OK", AT THIS TIME.
--- NOTE | 2021-07-18 22:17 | NUR ---
PATIENT'S BED ALARM WENT OFF AND THIS RN WENT TO CHECK ON THE PATIENT. PATIENT SITTING ON THE EDGE OF THE BED ASKING,"WHERE AM I?" PATIENT HAD NO MEMEORY OF BEING IN THE HOSPITAL OR WHY HE WAS HERE. PATIENT KNOWS HIS NAME, ADDRESS, WIFES NAME, THE YEAR, AND THE PRESIDENT, BUT CONFUSED ABOUT EVERTHING ELSE. PATIENT REORIENTED TO EVENTS AND PLACE AND HE SAYS,"THAT ALL SOUNDS FAMILIAR." PATIENT HELPED BACK UP INTO BED AND BED ALARM TURNED BACK ON. PATIENT CALL LIGHT IS IN REACH AND PATIENT HAS NO OTHER CARE NEEDS AT THIS TIME AND SAYS HE IS,"DOING OK." CHARGE NURSE LAURENCE INFORMED OF SITUATION.
--- NOTE | 2021-07-18 23:25 | NUR ---
PATIENT'S BED ALARM WENT OFF AGIN AND THIS RN AND NINA BRANTLEY, RESPONDED. PATIENT TRYING TO SIT UP AND CONFUSED TO WHERE HE IS AND WHAT IS GOING ON. THIS RN REORIENTED THE PATIENT TO HIS SITUATION AND TREATMENT PLAN AND PATIENT SAID,"OH, OK, I THINKG I REMEMBER." REEDUCATED PATIENT ON HOW TO USE THE CALL LIGHT, REFILLED HIS ICE WATER, GAVE 2 WARM BLANKETS, AND TURNED THE BED ALARM ON. PATIENT DENIES ANY OTHER NEEDS AT THIS TIME. LIGHT IN THE BATHROOM LEFT ON TO TRY AND KEEP PATIENT GROUNDED TO WHERE HE IS.
--- NOTE | 2021-07-19 01:47 | NUR ---
CAME TO [facility] ON PATIENT AND HE KNOWS WHERE HE IS AT THIS TIME. URINAL EMPTIED. PATIENT HAS C/O 6/10 LOW BACK PAIN AND 10MG PO OXYCODONE GIVE, PATIENT HS NO OTHER CARE NEEDS AT THIS TIME. CALL LIGHT IS IN REACH.
--- NOTE | 2021-07-19 03:43 | NUR ---
PATIENT RESTING QUIETLY SUPINE, EYES CLOSED, RESPIRATIONS REGULAR AND EVEN WITH A SLIGHT SNORE, URINAL EMPTIED, BED ALARM ON, AND CALL LIGHT IS IN REACH. PATIENT HAS NO CARE NEEDS AT THIS TIME.
--- NOTE | 2021-07-19 05:27 | NUR ---
THIS RN WENT IN TO EMPTY PATIENT'S URINAL AND PATIENT IS AWAKE NOW AND SAYS HIS BACK PAIN IS 8/10. AM ASSESSMENT IS COMPLETE ALONG WITH VS AND I+O. LEFT THE ROOM TO GO GET PAIN MEDICATION AND WHEN I RETURNED AND TOLD THE PATIENT I WAS BACK WITH HIS PAIN MEDS HE SAID,"WELL THAT SHOW'S HOW WITH IT I AM, I DIDN'T KNOW YOU'D LEFT THE ROOM." I ASKED IF HE REMEBERED TELLING ME ABOUT HIS PAIN AND MY RESPONSE THAT I WAS GOING TO GET MEDS. HE VERBALIZED THAT HE DID, "RECALL THAT." 10MG PO OXYCODONE GIVEN ALONG WITH A MUSCLE RELAXANT. PATIENT HAD NO OTHER NEEDS AT THIS TIME. BREAKFAST ORDER CALLED TO KITCHEN. CALL LIGHT IS IN REACH AND LIGHTS TURNED DOWN.
--- NOTE | 2021-07-19 07:18 | NUR ---
PATIENT CALLED AND SAYS HE IS HAVINF 10/10 LOW BACK PAIN. "I FEEL LIKE I'M GOING TO SNAP IN HALF." THIS RN CALLED AND INFORMED HER PATIENT HAD 10MG OXYCODONE AT 0147 FOR 6/10 PAIN AND AGAIN 10MG AT 0527 FOR 8/10 PAIN. DOES NOT WANT TO RESTART PM PAIN MEDS AND ORDERED A ONE TIME DOSE OF 2.5MG PO OXYCODONE NOW AND GIVE TNE DECADRON EARLY. ORDERD REPEATED BACK TO MD TO CONFIRM. INFORMATION GIVEN TO NINA HARDY AFTER SHE WAS GIVEN SHIFT REPORT.
--- NOTE | 2021-07-19 07:29 | NUR ---
this rn received report from angel amaya. pt in severe pain 05/27. angel amaya to call
--- NOTE | 2021-07-19 08:40 | NUR ---
NOtified in [address]os, pt will be dischargable today or tomorrow. Family would like pt to go to a SNF as he is still unable to walk at times and is unable to lift or move him. FAmily would like placement in or near [place] as they would like to follow up as out patients with [facility] and Dr Liborio ROSA. Pt sees Dr. Capone for his back issues.
--- NOTE | 2021-07-19 09:35 | NUR ---
this rn in pts room to give pt his morning meds. pt laying on his right side in a half position- pt reports that this is comfortable for him. this rn asked how pts pain was. pt reports 6/10- this rn noted that this is improvement from pain of 9/10 from this am. pt states that he doesn't feel like it is an improvement because he said that it just makes him sleepy- this rn educated pt that he was probably able to rest due to decreased pain. pts and son at bedside this rn could not find pts lidocaine patch on body
--- NOTE | 2021-07-19 10:00 | NUR ---
Placed calls to [facility] all within 5 miles of [place]. Unable to reach anyone and left message asking if they had bed availability. Lizy Basilio's message stated to not expect a return call for at least 2 business days. Spoke with staff from [facility] and they stated Catarina who completes intakes was on the phone. She will return my call. They were unsure if they had bed availabiliyt. Possibly one bed towards the end of the week. Spoke with Nicci from [facility] in [place], They may have a bed open tomorrow. I asked if they were available to transport the pt to [place] for follow up care. Nicci did states the would be able to do so as long as it was not several times per week. Will call [facility] back in a couple of hours if I do not hear from them.
--- NOTE | 2021-07-19 12:56 | NUR ---
Faxed face sheet, H&P, progress notes, PT/OT evals and notes, Med list, covid test. Added note pt has been vaccinated x 2 for coivid on November 18 and December 16.
--- NOTE | 2021-07-19 13:02 | NUR ---
Called Catarina at [facility], she has not received the chart yet and will call in a while if she does not receive. Updated family I did [facility] call [facility] and faxed pts chart. They will call me if they have space and accept him.
--- NOTE | 2021-07-19 14:00 | NUR ---
Received call from Ilene at [facility]. She requests chart and states they could take this pt first thing tomorrow am. Chart faxed and received return call at 1500 they have accepted this pt. Orders printed and given to Dr. Claros. Updated family and they agree to transport per van. Out of pocket cost is $90.00 and understanding stated. Called and spoke with Catarina from [facility]. She states this is good as they would not be able to accept this pt for a few days.
--- NOTE | 2021-07-19 15:23 | NUR ---
THIS RN IN PTS ROOM TO GIVE PT SCHEDULED MEDS. PT REPORTS PAIN AT 8/10. PT APPEARS TO BE DROWSYING OFF WHILE THIS RN IN ROOM. PTS FAMILY ASKING WHEN PT WILL LEAVE TOMORROW. THIS RN DICUSSED THIS TOIPIC WITH THEM TO THE BEST OF THE ABILITY
--- NOTE | 2021-07-19 16:44 | NUR ---
Both nares swabbed for rapid PCR Covid 19 sample. [facility]
[2021-07-19] MEDS ORDERED: CYCLOBENZAPRINE10 MG PO (17:01)
[2021-07-19] MEDS ORDERED: OXYCODONE HCL5 MG PO (17:02)
[2021-07-19] MEDS ORDERED: ACETAMINOPHEN500 MG PO (17:11)
[2021-07-19] MEDS ORDERED: HEALTHYLAX17 GM PO (17:11)
[2021-07-19] MEDS ORDERED: STIMULANT LAXA1 EACH PO (17:11)
[2021-07-19] MEDS ORDERED: PANTOPRAZOLE SO40 MG PO (17:12)
[2021-07-19] MEDS ORDERED: DEXAMETHASONE4 MG PO (17:12)
[2021-07-19] MEDS ORDERED: MELATONIN3 MG PO (17:14)
--- NOTE | 2021-07-19 18:00 | NUR ---
[facility] PT REPORTS PAIN 7-04/26. THIS RN PROVIDED PT WITH 5MG OXY.
--- NOTE | 2021-07-19 19:10 | NUR ---
RECEIVED REPORT, PT IS RESTING WITH EYES CLOSED, RR IS EVEN AND NONLABORED. CALL LIGHT IS CLOSE.
--- NOTE | 2021-07-19 22:15 | NUR ---
IN ROOM TO ASSESS PT AND ADMINISTER MEDICATIONS. PT REPORTS BACK PAIN 02/24 AND STATES IT'S IMPROVING BUT STILL PAINFUL. TALKED WITH PT ABOUT MEDICATION OPTIONS AND HE DENIES TAKING THE FLEXERIL BUT WANTED 2 OXYCODONE. PT REFUSED BOWEL MEDS BUT STATES HE WILL TAKE IN AM. ASSISTED PT SBA WITH FWW TO RESTROOM AND BACK TO BED. PT DENIES WEARING SCDS TO BED STATING THAT IT KEEPS HIM AWAKE. FRESH ICEWATER PROVIDED AND PT DENIES FURTHER NEEDS. PT ALSO REFUSED LIDOCAINE PATCH.
--- NOTE | 2021-07-19 23:58 | NUR ---
IN TO CHECK ON PT, HE IS SITTING AT EDGE OF BED. UP TO USE RESTROOM AND NOW BACK IN BED. ASSISTED PT TO CHANGE INTO UNDERWEAR, PT NO LONGER WANTS TO WEAR ATTENDS. PT DENIES FURTHER NEEDS AT THIS TIME. CALL LIGHT IS CLOSE.
--- NOTE | 2021-07-20 00:11 | NUR ---
PT IS NOW RESTING WITH EYES CLOSED, RR IS EVEN AND NONLABORED. CALL LIGHT IS CLOSE.
--- NOTE | 2021-07-20 01:34 | NUR ---
PT IS RESTING WITH EYES CLOSED, RR IS EVEN AND NONLABORED. CALL LIGHT IS CLOSE.
--- NOTE | 2021-07-20 03:08 | NUR ---
PT IS RESTING WITH EYES CLOSED, RR IS EVEN AND NONLABORED. CALL LIGHT IS CLOSE.
--- NOTE | 2021-07-20 03:38 | NUR ---
IN ROOM TO REPOSITION PT WITH HELP OF LAURENCE ESPARZA RN. PT NOW HAS PILLOWS UNDER HIS RIGHT SIDE. WHILE REPOSITIONING PT OPENED HIS EYES BRIEFLY BUT IS NOW BACK ALSEEP. CPOX READS 95% ON 15L OM. CALL LIGHT IS CLOSE.
--- NOTE | 2021-07-20 04:43 | NUR ---
PT IS RESTING WITH EYES CLOSED, RR IS EVEN AND NONLABORED. CALL LIGHT IS CLOSE.
--- NOTE | 2021-07-20 05:57 | NUR ---
CHECKED ON PT AND HE WAS AWAKE IN BED. PT REPORTS PAIN ABOUT 4-5/10 AND STATES HIS PAIN WAS MORE TOLERABLE LAST NIGHT. HE STATES HE WAS ABLE TO GET SOME GOOD SLEEP. ADMINISTERED 10MG PO OXYCODONE FOR PAIN. PT DENIES FURTHER NEEDS AT THIS TIME. CALL LIGHT IS CLOSE.
--- NOTE | 2021-07-20 07:20 | NUR ---
this rn received report from barbara amaya. pt appears to be resting at this time.
--- NOTE | 2021-07-20 08:40 | NUR ---
THIS RN IN PTS ROOM TO GIVE PT MORNING MEDS. PT STATES THAT PAIN IS 4-5/10 AT THIS TIME. PT STATES THAT HE IS READY TO GO TO [place].
--- NOTE | 2021-07-20 08:52 | NUR ---
Patient's belongings are being gathered up. Patient is waiting for his to come with his clothes to wear when leaving today. Patient's vitals were done by RN and I&Os are done as well by myself.
--- NOTE | 2021-07-20 10:22 | NUR ---
THIS RN CALLED REPORT TO SHARRI LINDA THIS AM. ALL QUESTIONS ANSWERED TO THE BEST OF THIS RN'S ABILITY AT THIS TIME.
== END 2021-07-20 10:20 | disposition home or self-care (01) | DRG 552 ==
LOC: ED 11:48 → MS 11:50
PROVIDERS: ADMIT Student in an Organized Health Care Education/Training Program; ATTEND Student in an Organized Health Care Education/Training Program
DX: M51.36 Other intervertebral disc degeneration, lumbar region (principal); K21.9 Gastro-esophageal reflux disease without esophagitis; Z20.822 Contact with and (suspected) exposure to COVID-19; G89.29 Other chronic pain; Z66 Do not resuscitate; M54.9 Dorsalgia, unspecified; I10 Essential (primary) hypertension; K80.80 Other cholelithiasis without obstruction; M51.37 Other intervertebral disc degeneration, lumbosacral region; K59.00 Constipation, unspecified; Z95.0 Presence of cardiac pacemaker; Z98.890 Other specified postprocedural states; Z79.899 Other long term (current) drug therapy; Z79.82 Long term (current) use of aspirin
CPT/HCPCS: 72193; 74177; 76705; 78300; 80048; 80076; 83690; 85025; 96372; 96374; 96375; 96376; 97110; 97162; 97165; 97530; 99285-25; A9270; A9503; C9113; C9803; G0378; J1100; J1170; J1650; J1885; J2405; J2550; J7121; J8540; Q9967; U0003

== ENCOUNTER 2021-09-26 12:15 | Emergency (ER) | payer MEDICARE, OTHER ==
[~2021-09-26] VITALS: Ht 177.8 cm; Wt 79.1 kg
[~2021-09-26 12:15] MED LIST changes: +ACETAMINOPHEN500 MG PO; +CYCLOBENZAPRINE10 MG PO; +DEXAMETHASONE4 MG PO; +HEALTHYLAX17 GM PO; +MELATONIN3 MG PO; +OXYCODONE HCL5 MG PO; +PANTOPRAZOLE SO40 MG PO; +STIMULANT LAXA1 EACH PO
--- OUTSIDE RECORDS SUMMARY | 2021-09-26 14:05 | XMS ---
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 E.D. VISIT COUNT (12 MO.) [address] [facility] TOTAL 2 NOTE: Visits indicate total known visits. ED/UCC VISIT TRACKING (12 MO.) 09/26/2021 12:16 [facility] TYPE: Emergency COMPLAINT: - UNRESPONSIVE 07/13/2021 11:49 [facility] TYPE: Emergency COMPLAINT: - BACK PAIN/NON INJURY INPATIENT VISIT TRACKING (12 MO.) 07/15/2021 09:[address] [facility] TYPE: Medical Surgical COMPLAINT: - INTRACTABLE BACK PAIN DIAGNOSES: - Other cholelithiasis without obstruction - Presence of cardiac pacemaker - Other intervertebral disc degeneration, lumbosacral region - Gastro-esophageal reflux disease without esophagitis - penitentiary (current) use of aspirin - Other chronic pain - Dorsalgia, unspecified - Other specified postprocedural states - Other specified postprocedural states - Other intervertebral disc degeneration, lumbar region - Other chronic pain - Other intervertebral disc degeneration, lumbar region - Constipation, unspecified - penitentiary (current) use of aspirin - Other joint terminal attack controller (current) drug therapy - Other cholelithiasis without obstruction - Presence of cardiac pacemaker - Do not resuscitate - Do not resuscitate - Other joint terminal attack controller (current) drug therapy - Constipation, unspecified - Essential (primary) hypertension - Essential (primary) hypertension - Gastro-esophageal reflux disease without esophagitis - Dorsalgia, unspecified [email or web address]
--- NOTE | 2021-09-26 20:45 | EKG ---
[facility] [address] [place], [place] [address] Signed Atrial-paced rhythm Low voltage QRS Abnormal ECG When compared with ECG of 17-OCT-2018 11:45, No significant change was found Confirmed by ABDON REYES DO ([id number]) on 09/26/2021 8:45:25 PM Electronically Signed By: ABDON REYES DO 09/26/[id number] PATIENT NAME: EDILSON LOPEZ NEGRITO Electrocardiogram DATE OF : 36 PHYSICIAN: ABDON REYES DO REPORT #: [id number] REPORT IS CONFIDENTIAL AND NOT TO BE RELEASED WITHOUT AUTHORIZATION
== END 2021-09-26 15:12 | disposition home or self-care (01) ==
LOC: ED 12:15
DX: R55 Syncope and collapse (principal); I10 Essential (primary) hypertension; Z79.899 Other long term (current) drug therapy; Z79.82 Long term (current) use of aspirin
CPT/HCPCS: 80053; 83735; 84484; 85025; 93005; 93010; 99284-25; J7040

== ENCOUNTER 2022-02-08 14:37 | Emergency (ER) | payer MEDICARE, OTHER ==
[~2022-02-08] VITALS: Ht 177.8 cm; Wt 77.1 kg
--- OUTSIDE RECORDS SUMMARY | 2022-02-08 14:40 | XMS ---
PreManage Notification: EDILSON LOPEZ Security Turn Operator Events No recent Security Events currently on file CRITERIA MET - CHRISTINA CARE PROVIDERS NANCY COBIAN Internal Medicine: Cardiovascular Disease Current PHONE: [phone] LOC LEUNG Physician Die Hardener Current PHONE: [phone] PATTIE Fontana Physical Medicine \T\ Rehabilitation Current PHONE: Unknown Jabier has no Care Guidelines for this patient. E.D. VISIT COUNT (12 MO.) [address] [facility] TOTAL 3 NOTE: Visits indicate total known visits. ED/UCC VISIT TRACKING (12 MO.) 02/08/2022 14:37 [facility] TYPE: Emergency COMPLAINT: - PACEMAKER DISLODGED 09/26/2021 12:16 [facility] TYPE: Emergency COMPLAINT: - UNRESPONSIVE DIAGNOSES: - Other gerontological nurse practitioner (current) drug therapy - Essential (primary) hypertension - Syncope and collapse - custodial (current) use of aspirin - Dizziness and giddiness 07/13/2021 11:49 [facility] TYPE: Emergency COMPLAINT: - BACK PAIN/NON INJURY INPATIENT VISIT TRACKING (12 MO.) 07/15/2021 09:56 [facility] TYPE: Medical Surgical COMPLAINT: - INTRACTABLE BACK PAIN DIAGNOSES: - Other cholelithiasis without obstruction - Presence of cardiac pacemaker - Other intervertebral disc degeneration, lumbosacral region - Gastro-esophageal reflux disease without esophagitis - custodial (current) use of aspirin - Other chronic pain - Dorsalgia, unspecified - Other specified postprocedural states - Other specified postprocedural states - Other intervertebral disc degeneration, lumbar region - Other chronic pain - Other intervertebral disc degeneration, lumbar region - Constipation, unspecified - custodial (current) use of aspirin - Other gerontological nurse practitioner (current) drug therapy - Other cholelithiasis without obstruction - Presence of cardiac pacemaker - Do not resuscitate - Do not resuscitate - Other retirement (current) drug therapy - Constipation, unspecified - Essential (primary) hypertension - Essential (primary) hypertension - Gastro-esophageal reflux disease without esophagitis - Dorsalgia, unspecified [email or web address]
[2022-02-08] MEDS ORDERED: DOXYCYCLINE HY100 MG PO (17:46)
== END 2022-02-08 18:08 | disposition home or self-care (01) ==
LOC: ED 14:37
DX: T82.128A Displacement of other cardiac electronic device, initial encounter (principal); I10 Essential (primary) hypertension; Z79.899 Other long term (current) drug therapy; Z79.82 Long term (current) use of aspirin; Y84.8 Other medical procedures as the cause of abnormal reaction of the patient, or of later complication, without mention of misadventure at the time of the procedure
CPT/HCPCS: 71046; 99284-25

== ENCOUNTER 2025-04-02 07:55 | Day surgery (SDC) | payer MEDICARE, OTHER ==
[2025-03-30 14:46] VITALS: BP 120/53
[~2025-04-02] VITALS: Ht 172.7 cm; Wt 82.0 kg
--- NOTE | ~2025-04-02 | OR ---
[facility] [address] [place], [place] [address] Draft DATE OF OPERATION: 04/02/2025 SURGEON: Brigida Rey MD PREOPERATIVE DIAGNOSES: 1. Recurrent right inguinal hernia. 2. Chronic bradycardia, history of pacemaker with explantation for infection. 3. Urinary outlet obstructive symptoms. POSTOPERATIVE DIAGNOSIS: Recurrent right inguinal hernia, indirect with intact floor. PROCEDURES: Repair of recurrent right inguinal hernia including ligation excision of indirect hernia sac and closure without Prolene mesh. ANESTHESIA: General LMA, Faiza Townsend CRNA as well as preoperative regional block and local anesthetic, a 10 mL of 0.25% Marcaine with epinephrine. INDICATION: This 85-year-old white man is a patient of HARMEET Bartlett. He underwent left inguinal hernia repair in 2018 by me, which has had no problem and right inguinal hernia repair in 2017, also by me. He has developed over time a recurrent hernia on the right side. It is fully reducible. He has had some urinary outlet obstructive type symptoms and some constipation, but no chronic cough. Quite notably, he had a left infraclavicular pacemaker placement in the past originally thought for sick sinus syndrome, which unfortunately became infected requiring explantation, antibiotic therapy, and so forth. 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 Garcia, had no intention of replacing another pacemaker. His heart rate runs between 45 and 49 reliably and he tolerates that well. An ultrasound was performed on January 06, 2025 showing reducible fat and bowel from a right inguinal hernia area finding. On the basis of his recurrent hernia and so forth, I have recommended repair of the recurrent right inguinal hernia. The risk of bleeding, infection, cardiac problems, and other unforeseen complications was reviewed in detail with him. He understands and wished to proceed. We have had clearance from his real estate professor as regarding his arrhythmia (bradycardia). FINDINGS: The tissues were well healed. There was no sign of infection. The floor of the PATIENT NAME: EDILSON LOPEZ OPERATIVE REPORT DATE OF : 36 REPORT #: [id number] PHYSICIAN: BRIGIDA REY MD PCP: RUTHIE LEUNG PA-C REPORT IS CONFIDENTIAL AND NOT TO BE RELEASED WITHOUT AUTHORIZATION [facility] [address] [place], [place] [address] Draft inguinal canal was firm and fibrotic as would be expected from mesh. As it turns out, he had a recurrent indirect hernia with a hernia sac protruding alongside the cord in the medial aspect. The mesh that was in place had the tails of the graft surrounding the cord laterally and medially, but likely the ottoniel of the mesh through which the cord passed had enlarged or was not significantly closed enough to allow for development of an indirect hernia sac. On that basis, the hernia sac was opened and found to contain no hollow viscus. It was ultimately excised and the hernia sac remnant secured. Rather than implant, additional mesh, which would not be necessary, the hunt internal ring fibers incorporated with prior mesh were simply reapproximated with interrupted 2-0 Prolene suture. The defect through which the cord passes is snug, but not excessively tight. Cord structures were preserved. There were no complications. DESCRIPTION OF PROCEDURE: The patient was given inguinal blockade by the duct installer in the preoperative area so as to avoid general anesthesia if possible. He was taken to the operating room. Testing showed sensitivity in the area and therefore, LMA was passed for a low level general anesthetic. The lower abdomen was prepared with a chlorhexidine solution and draped sterilely. An incision was made along the previous incision site after infiltration of 0.25% Marcaine with epinephrine. Dissection was carried through the now somewhat edematous subcutaneous tissue ultimately encountering the external oblique fascia, which had been previously opened for hernia repair of course. This was incised along its fibers revealing the underlying cord. Cord was somewhat attenuated. Palpable within this area was the hernia tissue in association with the cord. There was a firm nodule approximately 3 cm in size that was within the hernia sac. Hernia sac was carefully dissected free from the remnant of the cord structures and the cord structure remnants encircled with a Patsy drain. The hernia sac was then freed from the cord structures and opened. The nodular finding was essentially a piece of mummified fatty tissue with a narrow fibrotic pedicle was excised and passed for pathology. The hernia sac remnants were more fully freed from the cord structures and the floor itself. It appeared that the mesh that had been implanted in the floor of the canal had separation as would be expected to pass around the cord, but that the separation itself had enlarged enough that it allowed for development of the hernia sac. The hernia sac was amputated and its remnants secured with running 2-0 silk suture. Rather than implanting additional mesh for this small defect, the fibrotic edges of the defect were reapproximated with interrupted 2-0 Prolene suture. Five such sutures were placed so as to fully secure the internal ring, but not excessively compromise cord structures proper. Irrigation was undertaken and 10 mL of 0.25% Marcaine with epinephrine was injected locally. The external oblique fascia was reapproximated with running 2-0 Vicryl suture. Maty layer was reapproximated with interrupted 2-0 Vicryl and the skin closed with PATIENT NAME: EDILSON LOPEZ OPERATIVE REPORT DATE OF : 36 REPORT #: [id number] PHYSICIAN: BRIGIDA REY MD PCP: RUTHIE LEUNG PA-C REPORT IS CONFIDENTIAL AND NOT TO BE RELEASED WITHOUT AUTHORIZATION [address] [place] [address] Draft running subcuticular 3-0 Vicryl. Steri-Strips were applied. He was ultimately extubated and transferred to the recovery room in good condition having suffered no complication. Sponge, needle, and instrument counts were reported as correct x2. MD TAMMIE Nicholas/AMY /[id number] cc: MD Ruthie Escalante PA-C Copies: NATALIE GARCIA MD, CHLOE K PA-C ~ PATIENT NAME: EDILSON LOPEZ OPERATIVE REPORT DATE OF : 36 REPORT #: [id number] PHYSICIAN: BRIGIDA REY MD PCP: RUTHIE LEUNG PA-C REPORT IS CONFIDENTIAL AND NOT TO BE RELEASED WITHOUT AUTHORIZATION
[~2025-04-02 07:55] MED LIST changes: +AMLODIPINE BESYL5 MG PO; +CEFAZOLIN SODIUM 2 GM/20 ML SYR IV SCH; +DOXYCYCLINE HY100 MG PO; +HEParin SOD (PORCINE) 5,000 UNIT/ML SDV SUB-Q SCH; +IBLOOD GLUCOSE TEST STRIP 1 EA TEST VI PRN; +LACTATED RINGER'S 1,000 ML IV SCH; +LIDOCAINE HCL 1% 5 ML SDV INJ ONE; +SENNA LAXATIVE8.6 MG PO
--- NOTE | 2025-04-02 07:56 | NUR ---
PT NOT AVAILABLE FOR VISIT. PROVIDED PRAYER.
[2025-04-02 08:09] VITALS: BP 146/54
[2025-04-02] MEDS ORDERED: Ropivacaine HCl 0.5% 30 ML VIAL ONE ×2 (09:00→10:04)
[2025-04-02] MEDS ORDERED: LIDOCAINE HCL 2% 5 ML SDV ONE ×2 (09:00→10:04)
[2025-04-02] MEDS ORDERED: DEXAMETHASONE SOD PHOS 10 MG/ML VIAL ONE (09:04)
[2025-04-02] MEDS ORDERED: DEXAMETHASONE SOD PHOS 4 MG/ML VIAL ONE (11:44)
--- NOTE | 2025-04-02 12:14 | NUR ---
04/02/25 1214 Aliya Mukherjee 1207-PATIENT ARRIVED TO PACU ON 6L MASK NONAROUSABLE LMA IN PLACE 95% SINUS BRADYCARDIA HR 50'S WITH OCCASIONAL PVC. PADS ON CHEST. RIGHT GROIN CDI. 1213-PATIENT AROUSING MOVING RIGHT TOWARDS FACE LMA REMOVED. 6L MASK RR EVEN 96% HOB ELEVATED ORIENTED TO PACU EYES CLOSED. SR HR 64
[2025-04-02] MEDS ORDERED: HYDROCODON-ACE1 EA10 PO (12:22)
[2025-04-02] MEDS ORDERED: IBUPROFEN600 MG PO (12:23)
[2025-04-02] MEDS ORDERED: ACETAMINOPHEN500 MG PO (12:23)
[2025-04-02] MEDS ORDERED: ACETAMINOPHEN 500 MG TAB PO PRN (12:30)
[2025-04-02] MEDS ORDERED: NALOXONE HCL 0.4 MG SYR IV PRN (12:30)
[2025-04-02] MEDS ORDERED: LACTATED RINGER'S 1,000 ML IV SCH (12:30)
[2025-04-02] MEDS ORDERED: HYDROCODONE/ACETA 5/325 TAB PO PRN (12:30)
[2025-04-02] MEDS ORDERED: IBUPROFEN 600 MG TAB PO PRN (12:30)
[2025-04-02 12:45] VITALS: BP 161/59
--- NOTE | 2025-04-02 13:12 | NUR ---
1245 PT ARRIVED TO DAY SURGERY FROM PACU VIA STREACHER. PT AWAKE AND ORIENTED AND SIPPING ON WATER. PT IN ROOM, PT SON IN ROOM. VITALS TAKEN. IV ASSESSED. PT REPORTS NO PAIN OR NAUSEA AT THIS TIME. PT HAS JELLO AT BEDSIDE. 1250 PRESCRIPTION GIVEN TO SON TO RUN TO PHARMACY, PER PT REQUEST. PT HAS CALL LIGHT WITHIN REACH AND PERSONAL ITEMS WITHIN REACH. PT AT [facility]. BED IS LOW AND LOCKED.
[2025-04-02 13:50] VITALS: BP 150/58
--- NOTE | 2025-04-02 14:18 | NUR ---
1350 HOURLY ROUNDING DONE WITH PT. VITALS TAKEN. IV ASSESSED. PT REPORTS NO PAIN AT THIS TIME. PT VOIDED WITH URINAL ANOTHER 200 MLS OF CLEAR YELLOW URINE. 1400 DISCHARGE INFORMATION GONE OVER WITH PT, AND FAMILY. NO QUESTIONS AT THIS TIME. PT DRESSED WITH ASSISTANCE OF RN AND SPOUSE. IV REMOVED FOR DISCHARGE 1410 PT DISCHARGED FROM DAY SURGERY VIA WHEELCHAIR TO THE FRONT OF THE HOSPITAL TO PT'S SPOUSE'S CAR. PT SPOUSE HAS DISCHARGE INFO IN HAND.
[2025-04-02] MEDS ORDERED: SEVOFLURANE 250 ML BTL INH ONE (16:29)
--- NOTE | 2025-04-06 16:15 | PATH ---
[facility] [address] [place], [place] [address] Signed SPECIMEN(S): A FATTY NODULE OF HERNIA SPECIMEN(S): B RIGHT INGUINAL HERNIA SAC SPECIMEN SOURCE: A. FATTY NODULE OF HERNIA B. RIGHT INGUINAL HERNIA SAC CLINICAL HISTORY: Right inguinal hernia FINAL PATHOLOGIC DIAGNOSIS: A. Fatty nodule of hernia: - Hester lobulated adipose tissue consistent with lipoma. B. Right inguinal hernia sac: - Benign soft tissue consistent with clinical hernia sac. JVR:clv MICROSCOPIC EXAMINATION: Histologic sections of all submitted blocks are examined by light microscopy. These findings, together with the gross examination, support the pathologic diagnosis. GROSS DESCRIPTION: A. The specimen, labeled and designated "Barney, fatty nodule of hernia," is received in formalin and consists of yellow-agosto, soft, smooth fibroadipose tissue fragment that measure 3.0 x 2.7 x 1.4 cm. Specimen is inked. Sectioning through the specimen to reveal regular adipose tissue surrounded with a thin capsule. No abnormalities are grossly identified. Residential Advisor sections are submitted in (A1). B. The specimen, labeled and designated "Barney, right inguinal hernia sac," is received in formalin and consists of irregular shaped fibromembranous and fibroadipose tissue fragment that measure 7.5 x 2.0 x 0.5 cm. The specimen is yellow to pink-agosto and focally congested. Sectioning through the specimen is grossly unremarkable. Residential Advisor sections are submitted in (B1). JS (under the direct supervision of a pathologist) The Gross Description was prepared using a voice recognition system. The report was reviewed for accuracy; however, sound-alike word errors, addition and/or deletions may occur. If there is any PATIENT NAME: EDILSON LOPEZ PATHOLOGY DATE OF : 36 REPORT #: [id number] PHYSICIAN: ANTONIA PATHOLOGY PCP: LOC LEUNG PA-C REPORT IS CONFIDENTIAL AND NOT TO BE RELEASED WITHOUT AUTHORIZATION [facility] [address] [facility] [place], [place] [address] Signed question about this report, please contact Client Services. PERFORMING LABORATORY: Technical component was performed by [facility], [address] [place] [address] (CLIA# [id number]). Professional interpretation was performed by [facility], [address] [place] [id number] (CLIA#: [id number]). Diagnostician: Grayson Smith MD Pathologist Electronically Signed 04/06/2025 Copies: ~ PATIENT NAME: EDILSON LOPEZ PATHOLOGY DATE OF : 36 REPORT #: [id number] PHYSICIAN: ANTONIA VILLASENOR PCP: LOC LEUNG PA-C REPORT IS CONFIDENTIAL AND NOT TO BE RELEASED WITHOUT AUTHORIZATION
== END 2025-04-02 14:10 | disposition home or self-care (01) ==
LOC: DS 07:55
PROVIDERS: ATTEND Surgery
PROC: 0YQ50ZZ Repair Right Inguinal Region, Open Approach (ICD-10-PCS; principal; 2025-04-02 09:15)
DX: K40.91 Unilateral inguinal hernia, without obstruction or gangrene, recurrent (principal); G89.18 Other acute postprocedural pain; R00.1 Bradycardia, unspecified; N13.8 Other obstructive and reflux uropathy; Z79.899 Other long term (current) drug therapy
CPT/HCPCS: 00830; 64425; 76942; 88302; 88304; J0173; J0690; J1100; J1644; J2003; J2704; J2795; J7121

== ENCOUNTER 2025-04-04 15:27 | Emergency (ER) | payer MEDICARE, OTHER ==
[~2025-04-04] VITALS: Ht 152.4 cm; Wt 80.4 kg
[~2025-04-04 15:27] MED LIST changes: -CEFAZOLIN SODIUM 2 GM/20 ML SYR IV SCH; -HEParin SOD (PORCINE) 5,000 UNIT/ML SDV SUB-Q SCH; -IBLOOD GLUCOSE TEST STRIP 1 EA TEST VI PRN; +IBUPROFEN600 MG PO; -LACTATED RINGER'S 1,000 ML IV SCH; -LIDOCAINE HCL 1% 5 ML SDV INJ ONE
[2025-04-04 16:33] VITALS: BP 160/61
== END 2025-04-04 16:33 | disposition home or self-care (01) ==
LOC: ED 15:27
DX: T81.31XA Disruption of external operation (surgical) wound, not elsewhere classified, initial encounter (principal); I10 Essential (primary) hypertension; Z79.82 Long term (current) use of aspirin; Z79.899 Other long term (current) drug therapy
CPT/HCPCS: 99283